=== PATIENT | female | born 1965 | race African-American/Black ===

== ENCOUNTER 2016-04-07 00:05 | Emergency (ER) | payer OTHER ==
[~2016-04-07 00:05] MED LIST: HEPARIN SO5000 UNIT2 SC; HYOSCYAMIN0.125 MG/1 G TUBE; KCL IV; KEPPRA250 M1 PO; LABETALOL HCL300 M1 PO; NYSTATIN60 GM TOP; PRAZOSIN HCL1 M1 PO; PREVACID30 M2 PO; RANITIDINE15 MG/1 ML PO; SENOKOT8.6 M2 PO; TRANSDERM-SCOP1 EACH TOP
--- NOTE | 2016-04-07 00:09 | ED DYSPNEA/ASTHMA COMPLAINT ---
See Addendum History of Present Illness General Chief Complaint: General Adult Stated Complaint: UNRESPONSIVE PER EMS Source: old records, EMS, [facility] Exam Limitations: no limitations Vital Signs & Intake/Output Vital Signs & Intake/Output Vital Signs Date Time Temp Pulse Resp B/P Pulse O2 O2 Flow FiO2 Ox Delivery Rate 04/07 0035 100 04/07 0030 80 12 00/00 0 Ventilator 100% 04/07 0014 97.3 132 0 72/00 00 Trach Mask 100% 04/07 0010 00 Trach Mask 100% Allergies Coded Allergies: No Known Allergies (05/19/15) Reconcile Medications Hyoscyamine Sulfate 0.125 MG/ML DROPS 0.125 MG G TUBE 1/2 HR AC PAIN ( Reported) Nystatin 60 GM POWDER 1 ALESHA TOP BID skin (Reported) apply to affected area(s) Ranitidine HCl 15 MG/ML SYRUP 1 ML PO BID REFLUX (Reported) Scopolamine Hydrobromide (Transderm-Scop) 1.5MG/3DAY PATCH.TD.3 1 PAT TOP Q3D SECRETIONS (Reported) apply to the hairless area behind 1 ear at least 4 hours before effect is required; reapply every 3 days as needed Sennosides (Senokot) 8.6 MG TABLET 1 TAB PO AT BEDTIME consti[ation (Reported ) Triage Nurses Notes Reviewed? 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 Patient has a G-tube and a tracheostomy. She is DNR/DNI. She was found by the nursing staff hypoxic, with an O2 sat in the 50s. She was not breathing. 911 was called. They began supporting her with bag mask ventilation via her tracheostomy without problem. They transported her to the emergency department. Of note, she had no trauma or falls noted. She had been at her baseline previously which was that she was awake and alert to her surroundings. Past History Travel History Traveled to [place] past 21 day No Medical History Any Pertinent Medical History? 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 No Review of Systems Review of Systems Constitutional: Reports: no symptoms. EENTM: Reports: no symptoms. Respiratory: Reports: no symptoms. Cardiovascular: Reports: no symptoms. GI: Reports: no symptoms. Genitourinary: Reports: no symptoms. Musculoskeletal: Reports: no symptoms. Skin: Reports: no symptoms. Neurological/Psychological: Reports: no symptoms. Hematologic/Endocrine: Reports: no symptoms. Immunologic/Allergic: Reports: no symptoms. All Other Systems: Reviewed and Negative Comments Review of systems as per W 10 and medics, since patient is unresponsive Physical Exam Physical Exam General Appearance: well developed/nourished, patient unresponsive Head: normal appearance Eyes: Bilateral: other (pupils fixed dilated.). Ears, Nose, Throat: tracheostomy site clean dry and intact, with intact trach. Neck: normal inspection Respiratory: rhonchi bilaterally with bag mask ventilation. No independent respiratory effort Cardiovascular: regular rate/rhythm Gastrointestinal: distended abdomen with diminished bowel sounds. gastric contents leaking around G-tube site Extremities: lower extremities contracted. Thready distal pulses Neurologic/Psych: no response to painful stimuli. No corneal reflex bilaterally Skin: cool extremities Core Measures ACS in differential dx? No Severe Sepsis Present: No Septic Shock Present: No Progress Differential Diagnosis: aspiration pneumonia versus sepsis versus shock versus bowel obstruction versus bowel perforation versus UTI versus IL. Plan of Care: Orders Procedure Date/time Status LACTIC ACID 04/07 0318 Active LIPASE 04/07 0035 Complete AMYLASE 04/07 0035 Complete VENTILATOR PARAMETERS 04/07 0033 Complete CULTURE,URINE 04/07 0020 Active URINALYSIS 04/07 0020 Active LACTIC ACID 04/07 0018 Active BLOOD CULTURE 04/07 0015 Active ARTERIAL BLOOD GAS (GEN) 04/07 0011 Complete BLOOD CULTURE 04/07 0010 Active TROPONIN LEVEL 04/07 0009 Complete COMPREHENSIVE METABOLIC PANEL 04/07 0009 Complete CBC WITHOUT DIFFERENTIAL 04/07 000 Complete EKG 04/07 0009 Active Laboratory Tests 04/07/16 0035: Anion Gap 24 H, Estimated GFR 12 L, BUN/Creatinine Ratio 17.2, Glucose 129 H, Calcium 9.0, Total Bilirubin 0.8, AST 564 H, ALT 560 H, Alkaline Phosphatase 69, Troponin I 0.08, Total Protein 6.3, Albumin 3.2 L, Globulin 3.1, Albumin/ Globulin Ratio 1.0 L, Amylase 107, Lipase 73, CBC w Diff MAN DIFF ORDERED, RBC 4.91, MCV 71.0 L, MCH 22.3 L, RDW 20.8 H, MPV 11.1 H, Gran % 78.4 H, Lymphocytes % 15.1 L, Monocytes % 6.4, Eosinophils % 0, Basophils % 0.1, Absolute Granulocytes 11.1 H, Segmented Neutrophils 55, Band Neutrophils 13 H, Absolute Lymphocytes 2.1, Lymphocytes 28, Monocytes 4, Absolute Monocytes 0.9 H , Absolute Eosinophils 0, Absolute Basophils 0, Platelet Estimate ADEQUATE, Polychromasia 1+, Hypochromic-Microcytic 1+, Poikilocytosis 1+, Anisocytosis 1+, Microcytic Cells 1+, Ovalocytes 1+, Smyer Cells FEW, Elliptocytes FEW, PUBS MCHC 31.4 L, Fld Total RBCs Counted 100 04/07/16 0010: pH 7.37, pCO2 23 L, pO2 75 L, HCO3 13 L, ABG O2 Sat (Measured) 92.0 L, P-50 (Temp Corrected) Y, Carboxyhemoglobin 0.3 L, O2 Concentration % 100%, Temperature 97.3, O2 Delivery Method BAG TRACH, Phlebotomy Draw Site RIGHT RADIAL Microbiology 04/07 19 URINE ROUT: Urine Culture - ORD 04/07 14 BLOOD: Blood Culture - ORD 04/07 9 BLOOD: Blood Culture - ORD Initial ED EKG: normal axis, normal intervals, normal p-waves, normal QRS complex, normal sinus rhythm Departure Departure Disposition: Condition: Stable Clinical Impression Primary Impression: Pneumonia Secondary Impressions: Asystole, Hepatitis, Renal failure, Septic shock Referrals: CARO BARROSO MD (PCP/Family) Departure Forms: Customer Survey General Discharge Information Comments 04/07/16, 0:16AM... discussed with kelsea guevara, next of kin. I informed her of Ms. Kemp's serious illness. She affirmed that Ms. Kemp would want to be supported on a ventilator, but that she would not want chest compressions. 2.2.17, 0:51.... pt became lula cardic... was given atropine x 1. Pulse continued to decline. Pt went asystolic at 0:44. As per advanced directive, no chest compressions were given. I called and informed Ms. Guevara. Discussed with medical driver... no case. Critical Care Note Critical Care Note Critical Care Time: non-applicable
[2016-04-07 00:30] VITALS: BP 00/00
[2016-04-07 00:51] LABS: ABSOLUTE BASOPHIL COUNT 0 /CUMM (0.0-0.2); ABSOLUTE EOSINOPHIL COUNT 0 /CUMM (0.0-0.7); ABSOLUTE GRANULOCYTE CT 11.1 /CUMM (1.4-6.5); ABSOLUTE LYMPH COUNT 2.1 /CUMM (1.2-3.4); ABSOLUTE MONOCYTE COUNT 0.9 /CUMM (0.10-0.60); BASOPHIL % 0.1 % (0.0-2.0); EOSINOPHIL % 0 % (0-5); GRANULOCYTE % 78.4 % (42.2-75.2); HEMATOCRIT 34.8 % (37-47); MEAN CORPUSCULAR HGB 22.3 PG (27.0-31.0); MEAN CORPUSCULAR HGB CONC 31.4 G/DL (33.0-37.0); MEAN PLATELET VOLUME 11.1 FL (7.4-10.4); PLATELET COUNT 385 /CUMM (130-400); RBC DISTRIBUTION WIDTH 20.8 % (11.5-14.5); RED BLOOD CELL CT 4.91 /CUMM (4.20-5.40); WHITE BLOOD CELL COUNT 14.2 /CUMM (4.8-10.8)
== END 2016-04-07 02:25 | disposition expired ==
LOC: ERH 00:05
PROVIDERS: Pediatrics
DX: I46.9 Cardiac arrest, cause unspecified (principal); R65.21 Severe sepsis with septic shock; J18.9 Pneumonia, unspecified organism; K75.9 Inflammatory liver disease, unspecified; N19 Unspecified kidney failure; Z66 Do not resuscitate
CPT/HCPCS: 1344; 1387; 87040; 87086; 94799; 96374; 99291; J0461; J3370; J7060